=== PATIENT | female | born 1955 | race Caucasian/White ===

== ENCOUNTER → 2017-12-06 13:45 | Outpatient (CLI) | payer MEDICAID, SELFPAY ==
[2017-12-08 12:25] LABS: Cancer Antigen 125 13.1 U/mL (0.0-38.1)
== END ==
PROVIDERS: Family Provider Family Medicine; PCP Family Medicine; Visit Provider Obstetrics & Gynecology Gynecologic Oncology
DX: C54.1 Malignant neoplasm of endometrium (principal)
CPT/HCPCS: 36415; 86304

== ENCOUNTER 2018-04-25 11:27 | Emergency (ER) | payer MEDICAID, SELFPAY ==
[2018-04-25 11:28] VITALS: BP 160/90; PULSE 70; RESP 18; TEMP 36.8; O2SAT 98; BMI 34.4
--- NOTE | 2018-04-25 12:06 | CT_ITS ---
STUDY: CT ABDOMEN AND PELVIS WITHOUT CONTRAST REASON FOR EXAM: Female, 62 years old. Left flank pain with nausea and vomiting. History of endometrial carcinoma. RADIATION DOSAGE (If Supplied By Facility): CTDIvol = ( 22.78 ) mGy, DLP = ( 1189.25 ) mGycm TECHNIQUE: Transaxial images were obtained from the dome of the diaphragm to the symphysis pubis without oral contrast, and without intravenous contrast. Sagittal and coronal images were reconstructed. Individualized dose optimization techniques were used for this CT. COMPARISON: Comparison is made with prior study dated September 12, 2017. FINDINGS: The visualized lung bases are unremarkable. The visualized portions of the heart are within normal limits. Normal liver. Possible sludge and tiny gallstones along the dependent portion of the gallbladder. Normal spleen. Normal pancreas. Normal bilateral adrenal glands. There is evidence of bilateral hydronephrosis and hydroureter more prominent on the right side. 2 mm calculus seen in the distal portion right ureter proximal to the right ureterovesical junction. 2 punctate calcifications are seen in the lower pole calyces of the left kidney. Stable 3.4 cm x 2.5 cm cystic mass in the mid right retroperitoneal region abutting the right psoas muscle. There is a small hiatal hernia. Normal small intestine. There are multiple colonic diverticula consistent with diverticulosis. There is non-visualization of the appendix. There is scattered atherosclerotic calcification of the abdominal aorta, without a demonstrated aneurysm. Normal inferior vena cava. Normal retroperitoneum. Normal urinary bladder. There is absence of the uterus consistent with a prior hysterectomy. Normal abdominal wall. There are mild degenerative changes of the visualized lumbar spine. CT/Abdomen/Pelvis without Cont IMPRESSION: Bilateral hydronephrosis and hydroureter more prominent on the right side. 2 mm calculus seen in the distal portion the right ureter just proximal to the right ureterovesical junction. Tiny gallstones and/or sludge along the dependent portion the gallbladder lumen. Electronically Signed: Cesar Kat MD at 13:26 EDT Tel [phone], Service support ,
[2018-04-25] MEDS: 0.9% Normal Saline 1,000 ML 125 ML IV (12:16)
[2018-04-25] MEDS: Ondansetron 4 MG/2 ML Vial IV (12:17)
[2018-04-25] MEDS: Ketorolac 30 MG/ML Syringe 15 MG IV (12:17)
[2018-04-25] MEDS: HYDROmorphone 1 MG/ML Syringe IV ×2 (12:17→14:59)
[2018-04-25 12:28] LABS: Absolute Lymphocyte Count 0.73 X10^3/ul (0.83-4.51); Absolute Neutrophil Count 6.1 X10^3/uL (2.0-7.7); Basophil# 0.02 X10^3/uL; Basophil% 0.3 % (0-1); Eosinophil# 0.12 X10^3/uL; Eosinophils% 1.6 % (0-5); Hematocrit 36.1 % (37-47); Hemoglobin 11.5 g/dl (12.0-15.0); Lymphocyte # 0.73 X10^3/ul (4.0); Mean Corp Hgb Conc 31.9 g/gl (32-36); Mean Corpuscular Hgb 27.1 pg (27.0-32.0); Mean Corpuscular Volume 85.1 fL (81-99); Mean Platelet Vol. 8.8 fl (6.2-12.0); Monocyte# 0.33 X10^3/uL; Monocyte% 4.5 % (0-10); Neutrophil # 6.08 X10^3/uL (2.7-7.7); Neutrophil % 83.2 % (47-70); Platelet Count 215 K/mm3 (150-450); RBC Distribution Width CV 14.9 % (11.6-14.6); RBC Distribution Width SD 46.7 fl (35.1-43.9); Red Blood Count 4.24 M/mm3 (4.2-5.4); White Blood Count 7.3 K/mm3 (4.4-11.0)
[2018-04-25 12:30] LABS: POSITIVE COUNT NO; POSITIVE DIFFERENTIAL NO; POSITIVE MORPHOLOGY NO
[2018-04-25 12:31] LABS: Anion Gap 7 (5-15); BUN 24 mg/dL (7-18); BUN/Creat Ratio 21.4 RATIO (10-20); Calcium,Total 9.2 mg/dL (8.5-10.1); Chloride 114 mmol/L (98-107); Creatinine, Serum 1.12 mg/dL (0.55-1.02); EST Glomerular Filtration Rate 52 mL/min (>60); Est Glom Filt Rate - Afr Amer 63 mL/min (>60); Estimated Creatinine Clearance 51.86 ml/min; Glucose 103 mg/dL (74-106); Potassium 4.2 mmol/L (3.5-5.1); Sodium Level 141 mmol/L (136-145)
[2018-04-25 13:53] LABS: Color, Urine Yellow (Yellow); Glucose, Dipstick Normal (Normal); Ketone-Dipstick Negative (Negative); Leukocyte Esterase-Dipstick 100 /ul (Negative); Nitrite-Dipstick Negative (Negative); Occult Blood-Urine 250 /ul (Negative); Protein-Dipstick 30 mg/dl (Negative); Specific Gravity, Urine 1.015 (1.002-1.030); Urine Bilirubin Dipstick Negative (Negative); Urine Clarity Sl. Cloudy (Clear); Urine Urobilinogen Normal (Normal)
[2018-04-25 14:02] LABS: Bacteria 1+ /hpf (None Seen); Red Blood Cells-Urine 50-100 SEEN /hpf (0-5); Squamous Epithelial Cells - UA 0-5 SEEN /hpf (5-10); White Blood Cells 10-25 SEEN /hpf (0-5)
[2018-04-25 14:03] LABS: Mucous, Urine 1+ /hpf (<or=2+)
--- NOTE | 2018-04-25 14:43 | ED.VISSUMM ---
- ER Visit Summary Date of Service: 04/25/18 Chief Complaint: [Flank pain] History of Present Illness: The patient is a 62 F [presents the emergency department with left-sided flank pain that started around 7 AM. Patient rates her pain a 10 out of 10. Patient's had nausea and vomiting with this. Patient was seen by her primary care physician who dipped the urine and was told she had some blood in the urine was sent to the emergency department. Patient does have a history of kidney stones. Patient denies any fever. Patient denies urinary symptoms otherwise. ] Physical Examination: HEENT-PERRLA, EOMI. Cranial nerves II through XII grossly intact. TMs clear. Mucous membranes moist. No adenopathy. Cardiovascular-regular rate and rhythm without murmur or ectopy Lungs-clear to auscultation, chest wall stable without crepitus or subcu emphysema Abdomen-normoactive bowel sounds, soft. Patient has tenderness over left lower quadrant and left CVA tenderness on exam. There is no rebound, rigidity, or perineal signs. Extremities-intact ?4, normal range of motion, normal pulses, atraumatic] Test Results: [CBC with differential obtained showed a white blood cell count of 7.3, hemoglobin 11.5, hematocrit 36, platelet 215. Chemistry is unremarkable. Urinalysis was positive for 50-100 RBCs and 10-25 WBCs and +[address] flank obtained showed bilateral hydronephrosis and hydroureter more prominent on the right side there is a 2 mm calculus seen in the distal portion of the right ureter just proximal to the right UVJ patient also was noted to have possible 3.5 mm calculus at the left UVJ.] Emergency Department Course and Treatment: [Patient was medicated with Dilaudid, Toradol, and Zofran. Patient had good pain relief with that. Patient was treated with Bactrim. 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 Patient states that she will return if her symptoms worsen.] Disposition: [Discharged home in stable condition. Patient will be referred to was on-call for urology. Patient advised to return if worsening pain, fever, vomiting, or condition should worsen in any way.] Impression: [Urolithiasis UTI] This note was generated with [employer] dictation software. It may contain incorrect words, spelling, and punctuation that were not noted in review of the chart prior to signing ED Disposition - Plan for ED Patient: Chief Complaint: Flank Pain Referrals: Brook Woo MD [Primary Care Provider] -
--- NOTE | 2018-04-25 14:47 | ED.DCSUM_ITS ---
- ER Visit Summary Date of Service: 04/25/18 Chief Complaint: [Flank pain] History of Present Illness: The patient is a 62 F [presents the emergency department with left-sided flank pain that started around 7 AM. Patient rates her pain a 10 out of 10. Patient's had nausea and vomiting with this. Patient was seen by her primary care physician who dipped the urine and was told she had some blood in the urine was sent to the emergency department. Patient does have a history of kidney stones. Patient denies any fever. Patient denies urinary symptoms otherwise. ] Physical Examination: HEENT-PERRLA, EOMI. Cranial nerves II through XII grossly intact. TMs clear. Mucous membranes moist. No adenopathy. Cardiovascular-regular rate and rhythm without murmur or ectopy Lungs-clear to auscultation, chest wall stable without crepitus or subcu emphysema Abdomen-normoactive bowel sounds, soft. Patient has tenderness over left lower quadrant and left CVA tenderness on exam. There is no rebound, rigidity, or perineal signs. Extremities-intact ?4, normal range of motion, normal pulses, atraumatic] Test Results: [CBC with differential obtained showed a white blood cell count of 7.3, hemoglobin 11.5, hematocrit 36, platelet 215. Chemistry is unremarkable. Urinalysis was positive for 50-100 RBCs and 10-25 WBCs and +[address] flank obtained showed bilateral hydronephrosis and hydroureter more prominent on the right side there is a 2 mm calculus seen in the distal portion of the right ureter just proximal to the right UVJ patient also was noted to have possible 3.5 mm calculus at the left UVJ.] Emergency Department Course and Treatment: [Patient was medicated with Dilaudid , Toradol, and Zofran. Patient had good pain relief with that. Patient was treated with Bactrim. 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 Patient states that she will return if her symptoms worsen.] Disposition: [Discharged home in stable condition. Patient will be referred to was on-call for urology. Patient advised to return if worsening pain , fever, vomiting, or condition should worsen in any way.] Impression: [Urolithiasis UTI] This note was generated with [employer] dictation software. It may contain incorrect words, spelling, and punctuation that were not noted in review of the chart prior to signing ED Disposition - Plan for ED Patient: Chief Complaint: Flank Pain Referrals: Brook Woo MD [Primary Care Provider] -
--- NOTE | 2018-04-25 14:47 | ED.DEP ---
ED Disposition - Plan for ED Patient: Chief Complaint: Flank Pain Instructions: ED Stone Renal W Colic Prescriptions: Ondansetron [Zofran Odt] 4 mg PO Q8H PRN PRN #10 tab PRN Reason: Nausea Hydrocodone/Acetaminophen [[place] 5-325 Tablet] 1 - 2 ea PO 4X/DAY PRN PRN 5 Days #20 tab PRN Reason: Pain Smz/Tmp Ds [Bactrim Ds] 1 tab PO BID #10 tab Referrals: Brook Woo MD [Primary Care Provider] - Johan Gomez MD [STAFF PHYSICIAN] - 3-5 Days
--- NOTE | 2018-04-25 14:50 | DCINST.ED_ITS ---
ED Disposition - Plan for ED Patient: Chief Complaint: Flank Pain Instructions: ED Stone Renal W Colic Prescriptions: Ondansetron [Zofran Odt] 4 mg PO Q8H PRN PRN #10 tab PRN Reason: Nausea Hydrocodone/Acetaminophen [[place] 5-325 Tablet] 1 - 2 ea PO 4X/DAY PRN PRN 5 Days #20 tab PRN Reason: Pain Smz/Tmp Ds [Bactrim Ds] 1 tab PO BID #10 tab Referrals: Brook Woo MD [Primary Care Provider] - Johan Gomez MD [STAFF PHYSICIAN] - 3-5 Days
[2018-04-25] MEDS: Smz/Tmp Ds Tablet 1 TABLET PO (14:51)
[2018-04-25 14:59] VITALS: BP 136/60; PULSE 52; RESP 16; O2SAT 98
== END 2018-04-25 15:05 | disposition home or self-care (01) ==
LOC: ED 12:30
PROVIDERS: Emergency Provider Emergency Medicine; Family Provider Family Medicine; PCP Family Medicine
DX: N13.2 Hydronephrosis with renal and ureteral calculous obstruction (principal); N39.0 Urinary tract infection, site not specified; Z87.442 Personal history of urinary calculi
CPT/HCPCS: 74176; 80048; 81001; 85025; 87077; 87086; 87088; 99284; J7030; A4216; J2405

== ENCOUNTER → 2018-04-28 13:48 | Outpatient (CLI) | payer MEDICAID, SELFPAY ==
[2018-05-02 12:06] LABS: Cancer Antigen 125 19.4 U/mL (0.0-38.1)
== END ==
PROVIDERS: Family Provider Family Medicine; PCP Family Medicine; Visit Provider Obstetrics & Gynecology Gynecologic Oncology
DX: C54.1 Malignant neoplasm of endometrium (principal)
CPT/HCPCS: 36415; 86304

== ENCOUNTER 2018-06-06 20:49 | Emergency (ER) | payer MEDICAID, SELFPAY ==
[2018-06-06 20:50] VITALS: BP 159/84; PULSE 69; RESP 16; TEMP 37.2; O2SAT 97; BMI 36.2
[2018-06-06 21:11] LABS: Absolute Lymphocyte Count 0.87 X10^3/ul (0.83-4.51); Absolute Neutrophil Count 7.6 X10^3/uL (2.0-7.7); Basophil# 0.02 X10^3/uL; Basophil% 0.2 % (0-1); Eosinophil# 0.08 X10^3/uL; Eosinophils% 0.9 % (0-5); Hematocrit 35.8 % (37-47); Hemoglobin 11.7 g/dl (12.0-15.0); Lymphocyte # 0.87 X10^3/ul (4.0); Lymphocyte % 9.9 % (19-41); Mean Corp Hgb Conc 32.7 g/gl (32-36); Mean Corpuscular Hgb 28.1 pg (27.0-32.0); Mean Corpuscular Volume 86.1 fL (81-99); Monocyte% 3.4 % (0-10); Neutrophil # 7.55 X10^3/uL (2.7-7.7); Neutrophil % 85.5 % (47-70); POSITIVE COUNT NO; POSITIVE DIFFERENTIAL NO; POSITIVE MORPHOLOGY NO; Platelet Count 212 K/mm3 (150-450); RBC Distribution Width CV 14.5 % (11.6-14.6); RBC Distribution Width SD 44.6 fl (35.1-43.9); Red Blood Count 4.16 M/mm3 (4.2-5.4); White Blood Count 8.8 K/mm3 (4.4-11.0)
[2018-06-06 21:12] LABS: Bacteria 0 SEEN /hpf (None Seen); Mucous, Urine 0 SEEN /hpf (<or=2+)
[2018-06-06 21:16] LABS: Color, Urine Yellow (Yellow); Glucose, Dipstick Normal (Normal); Ketone-Dipstick Negative (Negative); Leukocyte Esterase-Dipstick 500 /ul (Negative); Nitrite-Dipstick Negative (Negative); Occult Blood-Urine 50 /ul (Negative); Protein-Dipstick 30 mg/dl (Negative); Urine Bilirubin Dipstick Negative (Negative); Urine Clarity Sl. Cloudy (Clear); Urine Urobilinogen Normal (Normal)
[2018-06-06 21:23] LABS: Red Blood Cells-Urine 0-5 SEEN /hpf (0-5); Squamous Epithelial Cells - UA 0-5 SEEN /hpf (5-10); White Blood Cells 25-50 SEEN /hpf (0-5)
--- NOTE | 2018-06-06 22:14 | CT_ITS ---
STUDY: CT ABDOMEN AND PELVIS WITHOUT CONTRAST REASON FOR EXAM: Female, 62 years old. RT FLANK PAIN SINCE 2AM AND VOMITING,ELEVATED BP HX:KIDNEY STONES,ENDOMETRIAL CANCER WITH MINDA/BSO RADIATION DOSAGE (If Supplied By Facility): CTDIvol = ( 20.51 ) mGy, DLP = ( 1086.17 ) mGycm TECHNIQUE: Transaxial images were obtained from the dome of the diaphragm to the symphysis pubis without oral contrast, and without intravenous contrast. Sagittal and coronal images were reconstructed. COMPARISON: Apr 25 2018 12:14pm FINDINGS: The visualized lung bases are unremarkable. The visualized portions of the heart are within normal limits. Normal liver. There are multiple gallstones. Normal spleen. Normal pancreas. Normal bilateral adrenal glands. Nonobstructive stone of the superior right kidney measuring 1 mm. Severe right hydronephroureter caused by a 4 mm distal ureteral stone. There are nonobstructive 1 mm stones in the inferior left kidney. Normal visualized stomach. Normal small intestine. There are multiple colonic diverticula consistent with diverticulosis. The appendix is visualized and appears normal. There are calcifications of the abdominal aorta and vascular structures. This is consistent for atherosclerotic disease. There is no abdominal aortic aneurysm. Normal inferior vena cava. Subcentimeter mesenteric lymph nodes. Normal urinary bladder. There is absence of the uterus consistent with a prior hysterectomy. Normal abdominal wall. There are degenerative changes of the osseous structures. CT/Abdomen/Pelvis without Cont IMPRESSION: Severe right hydronephroureter caused by a 4 mm distal ureteral stone. There are multiple diverticuli of the colon. There is diverticulosis but no radiographic signs for diverticulitis. There are bilateral renal calculi. Cholelithiasis. Other findings as above. Electronically Signed: Milind Hassan MD at 23:09 EDT , Service support ,
[2018-06-06] MEDS: Morphine 4 MG/ML Syringe IV (22:21)
[2018-06-06] MEDS: Ketorolac 30 MG/ML Syringe IV (22:21)
[2018-06-06] MEDS: 0.9% Normal Saline 1,000 ML 250 ML IV (22:21)
[2018-06-06] MEDS: Ondansetron 4 MG/2 ML Vial IV (22:21)
[2018-06-06 22:31] LABS: AST(SGOT) 13 U/L (15-37); Alanine Aminotransfer ALT/SGPT 24 U/L (13-56); Albumin, Serum 3.6 g/dL (3.2-5.0); Alkaline Phosphatase 189 U/L (45-117); Anion Gap 9 (5-15); BUN 24 mg/dL (7-18); BUN/Creat Ratio 17.4 RATIO (10-20); Calcium,Total 8.9 mg/dL (8.5-10.1); Chloride 109 mmol/L (98-107); Creatinine, Serum 1.38 mg/dL (0.55-1.02); EST Glomerular Filtration Rate 41 mL/min (>60); Est Glom Filt Rate - Afr Amer 50 mL/min (>60); Estimated Creatinine Clearance 40.58 ml/min; Globulin 3.7 g/dL (2.2-4.2); Glucose 116 mg/dL (74-106); Potassium 4.1 mmol/L (3.5-5.1); Protein, Total 7.3 g/dL (6.4-8.2); Sodium Level 141 mmol/L (136-145)
[2018-06-06 22:55] VITALS: BP 138/69; PULSE 57; RESP 16; O2SAT 95
--- NOTE | 2018-06-06 23:46 | ED.VISSUMM ---
- ER Visit Summary Date of Service: 06/06/18 Chief Complaint: Right flank pain History of Present Illness: The patient is a [address] Woo. She reports she has right flank pain that began abruptly 2:00 this morning. States that it is sharp and 10 out of 10 at worst. Pain is 9 out of 10 currently. Is worsened by nothing relieved by nothing. She has been nausea and vomited once. No blood or emesis. She denies any diarrhea. Her last problem was today. She has had no melena or hematochezia. She has had dysuria, but no frequency or hematuria. Physical Examination: Vitals: Stable. Afebrile. General: Well-nourished and well-developed. Head: Normocephalic atraumatic. Neck: Supple, no lymphadenopathy. No JVD. Nontender. Cardiovascular: Regular rate and rhythm. No murmurs. Respiratory: No respiratory distress. Clear to auscultation bilaterally. Abdominal: Soft, nontender, nondistended, normal bowel sounds. No guarding, rebound, or peritoneal signs. Back: Nontender. Extremities: Nontender, no edema. Skin: Normal color, no rash. Neurologic: Alert and oriented ?3. Cranial nerves II through XII are intact. Normal strength and sensation. Psych: Normal affect. Test Results: UA shows 25-50 white blood cells with no bacteria. Chem-7 is more for chloride 109, glucose 116, BUN 24, creatinine 1.38. Creatinine ranged from 0.761.29 and 2017. CBC is more for an H&H 11.7 35.8, 7 neutrophils [address] flank shows severe right hydronephroureter secondary to a 4 mm distal ureteral stone. Emergency Department Course and Treatment: Patient's urine was sent for culture. She is given a dose of Rocephin IV. She was given morphine, Zofran, and Toradol IV. She is resting comfortably. Treatment Plan: Patient will be discharged on M[place], Flomax, and Keflex. Instructed follow-up Dr. Gomez in 3-5 days she did not pass the stone. Return to the emergency department for any worsening symptoms. Disposition: To home in improved and stable condition. Impression: 1. Right ureterolithiasis. 2. Pyuria. This note was generated with [employer] dictation software. It may contain incorrect words, spelling, and punctuation that were not noted in review of the chart prior to signing ED Disposition - Plan for ED Patient: Disposition: Home or Assisted Living Chief Complaint: Flank Pain Instructions: ED Stone Renal W Colic Prescriptions: Hydrocodone/Acetaminophen [[place] 5-325 Tablet] 1 - 2 each PO 4X/DAY PRN PRN 5 Days #20 tablet PRN Reason: Pain Tamsulosin HCl [Flomax] 0.4 mg PO DAILY #7 capsule Cephalexin [Keflex] 500 mg PO TID #21 capsule Referrals: Johan Gomez MD [STAFF PHYSICIAN] - 3-5 Days if not improving
[2018-06-07] MEDS: HYDROcodone Bitartrate/Apap 5/325 Tablet PO (00:16)
[2018-06-07 00:19] VITALS: PULSE 58; RESP 16
== END 2018-06-07 00:20 | disposition home or self-care (01) ==
LOC: ED 22:17
PROVIDERS: Emergency Provider Emergency Medicine; Family Provider Family Medicine; PCP Family Medicine
DX: N20.1 Calculus of ureter (principal); N39.0 Urinary tract infection, site not specified; Z87.442 Personal history of urinary calculi
CPT/HCPCS: 74176; 80053; 81001; 85025; 87086; 87088; 99284; J7030; A4216; J2405

== ENCOUNTER → 2018-08-31 10:22 | Outpatient (CLI) | payer MEDICAID, SELFPAY ==
--- NOTE | 2018-08-31 10:51 | RAD_ITS ---
STUDY: X-RAY CHEST REASON FOR EXAM: Female, 63 years old. Endometrial cancer. TECHNIQUE: Frontal and lateral views of the chest. COMPARISON: 05/02/2017. FINDINGS: The lungs are clear and expanded. There is no demonstrated pleural abnormality. Normal size heart. Normal mediastinum and elba. Normal visualized pulmonary arteries. Normal visualized aortic arch and descending thoracic aorta. Normal visualized thoracic spine. Normal visualized ribs, clavicles, and shoulders. There is no demonstrated abnormality of the visualized soft tissue structures of the upper abdomen. RAD/Chest PA and Lateral IMPRESSION: Normal x-ray examination of the chest. Electronically Signed: Kevin lCark MD at 17:14 EDT , Service support ,
[2018-09-01 15:37] LABS: Cancer Antigen 125 36.8 U/mL (0.0-38.1)
== END ==
PROVIDERS: Family Provider Family Medicine; PCP Family Medicine; Referring Provider Obstetrics & Gynecology Gynecologic Oncology
DX: C54.1 Malignant neoplasm of endometrium (principal)
CPT/HCPCS: 36415; 71046; 86304

== ENCOUNTER → 2018-11-01 15:27 | Outpatient (CLI) | payer MEDICAID, SELFPAY ==
--- NOTE | 2018-11-01 15:28 | BI_ITS ---
MAMMOGRAPHY - BILATERAL SCREENING 3-D JAMES SYNTHESIS REASON FOR EXAM: Female, 63 years old. Bilateral Screening 3-D tomosynthesis PERTINENT HISTORY: History of cervical cancer.. TECHNIQUE: 2-D mammograms and 3-D James synthesis of the breast (s) were performed. CAD was performed. COMPARISON: March 02, 2016, March 06, 2013 FINDINGS: The breast composition is almost entirely fat. There are stable lymph nodes. Scattered benign calcifications are seen. No dense spiculated masses or suspicious microcalcifications are identified. No architectural distortion is identified. There is no skin thickening or retraction. There has been no significant change since the prior study. BI/SCREENING MAMM (CAD), BILAT IMPRESSION: No mammographic signs of malignancy. Routine yearly mammograms recommended. ASSESSMENT CATEGORY: BIRADS Category 2: Benign. A letter regarding these results will be sent to the patient by the facility within 30 days. FOLLOW UP RECOMMENDATION: Yearly follow up mammogram recommended. (A) Approximately 10% of breast cancers are not detected by mammography. A normal mammogram should not delay biopsy of a clinically suspicious abnormality. Electronically Signed: Yuval Gomez MD at 10:36 EST , Service support ,
== END ==
PROVIDERS: Family Provider Family Medicine; PCP Family Medicine; Visit Provider Family Medicine
DX: Z12.31 Encounter for screening mammogram for malignant neoplasm of breast (principal)
CPT/HCPCS: 77063; 77067

== ENCOUNTER 2018-12-12 18:47 | Emergency (ER) | payer MEDICAID, SELFPAY ==
[2018-12-12 18:48] VITALS: BP 155/90; PULSE 87; RESP 18; TEMP 36.1; O2SAT 97; BMI 38.8
--- NOTE | 2018-12-12 20:11 | CT_ITS ---
HISTORY: Rt flankpain. Hx of kidney stones and endometrial cancer with [place]/BSO TECHNIQUE: Helically acquired images were obtained of the abdomen and pelvis without oral or IV contrast as per renal stone protocol. A radiation dose optimization technique was used for this scan. IV Contrast dosage and agent: None. Oral contrast: None. COMPARISON: 06/06/18 CT abdomen and pelvis. FINDINGS: # of images incl. paperwork: 531 LOWER CHEST: Lung bases are clear. No cardiomegaly or pericardial effusion observed. LIVER: Homogeneous. No focal mass. GALLBLADDER AND BILIARY TREE: Several small gallstones layer in the gallbladder. No evidence of acute cholecystitis or biliary obstruction. No intra- or extrahepatic biliary ductal dilation. KIDNEYS AND URETERS: 9 mm in length, 3 mm in diameter stone in the distal right ureter, about 2 cm from the urinary bladder, with moderate to severe more proximal hydronephrosis and hydroureter. No residual right-sided stones are evident. A couple of punctate nonobstructing stones are seen in the lower pole of the left kidney. No left hydronephrosis or left ureteral stones. ADRENAL GLANDS: Non-enlarged. SPLEEN: Normal size without focal cystic or solid mass. PANCREAS: No focal cystic or solid mass. BOWEL: Sigmoid colon diverticulosis. No diverticulitis. No obstruction or inflammation of the bowel. Normal appendix. LYMPH NODES: No enlarged mesenteric or retroperitoneal lymph nodes. PERITONEUM: No ascites or free air. No other fluid collection. VESSELS: Aorta is non-dilated. URINARY BLADDER: Incompletely distended, otherwise grossly unremarkable. REPRODUCTIVE ORGANS: Status post hysterectomy. ABDOMINAL WALL: No discrete abdominal or pelvic wall hernia observed. BONES: No acute findings. Facet degeneration lower lumbar spine. Partial lumbarization S1. CT/Abdomen/Pelvis without Cont IMPRESSION: 9 x 3 mm distal right ureteral stone with moderate to severe more proximal hydronephrosis and hydroureter. A similar, but smaller, right ureteral stone was seen on the prior study. Punctate nonobstructing left renal stones. Cholelithiasis. Individualized dose optimization techniques were used for this CT. at 2122 Reported and signed by: Juan Clark MD Electronically Signed: Juan Clark, at 21:21 EST Tel , Service support ,
[2018-12-12] MEDS: 0.9% Normal Saline 1,000 ML 150 ML IV (20:27)
[2018-12-12 20:41] LABS: Absolute Lymphocyte Count 0.48 X10^3/ul (0.83-4.51); Absolute Neutrophil Count 6.9 X10^3/uL (2.0-7.7); Basophil# 0.02 X10^3/uL; Basophil% 0.2 % (0-1); Differential Indicated SCAN CRITERIA MET; Eosinophil# 0.14 X10^3/uL; Eosinophils% 1.7 % (0-5); Hematocrit 37.9 % (37-47); Hemoglobin 12.2 g/dl (12.0-15.0); Lymphocyte # 0.48 X10^3/ul (4.0); Lymphocyte % 5.8 % (19-41); Mean Corp Hgb Conc 32.2 g/gl (32-36); Mean Corpuscular Hgb 27.7 pg (27.0-32.0); Mean Corpuscular Volume 85.9 fL (81-99); Mean Platelet Vol. 8.8 fl (6.2-12.0); Monocyte# 0.64 X10^3/uL; Monocyte% 7.8 % (0-10); Neutrophil # 6.92 X10^3/uL (2.7-7.7); Neutrophil % 84.3 % (47-70); POSITIVE COUNT NO; POSITIVE DIFFERENTIAL YES; POSITIVE MORPHOLOGY NO; Platelet Count 250 K/mm3 (150-450); RBC Distribution Width CV 14.1 % (11.6-14.6); Red Blood Count 4.41 M/mm3 (4.2-5.4); White Blood Count 8.2 K/mm3 (4.4-11.0)
[2018-12-12] MEDS: Morphine 4 MG/ML Syringe IV (20:44)
[2018-12-12] MEDS: Ondansetron 4 MG/2 ML Vial IV (20:44)
[2018-12-12] MEDS: Ketorolac 15 MG/ML Vial IV (20:44)
[2018-12-12 20:52] LABS: Anion Gap 8 (5-15); BUN 23 mg/dL (7-18); BUN/Creat Ratio 20.4 RATIO (10-20); Calcium,Total 9.1 mg/dL (8.5-10.1); Chloride 108 mmol/L (98-107); Creatinine, Serum 1.13 mg/dL (0.55-1.02); EST Glomerular Filtration Rate 51 mL/min (>60); Est Glom Filt Rate - Afr Amer 62 mL/min (>60); Estimated Creatinine Clearance 48.91 ml/min; Glucose 116 mg/dL (74-106); Potassium 4.2 mmol/L (3.5-5.1); Sodium Level 140 mmol/L (136-145)
[2018-12-12 21:00] LABS: Platelet Estimate ADEQUATE (ADEQ)
[2018-12-12 21:01] LABS: Anisocytosis RARE
[2018-12-12 21:21] LABS: Mucous, Urine 0 SEEN /hpf (<or=2+)
[2018-12-12 21:47] LABS: Color, Urine Yellow (Yellow); Glucose, Dipstick Normal (Normal); Ketone-Dipstick Negative (Negative); Leukocyte Esterase-Dipstick 500 /ul (Negative); Nitrite-Dipstick Negative (Negative); Occult Blood-Urine 50 /ul (Negative); Protein-Dipstick 30 mg/dl (Negative); Urine Bilirubin Dipstick Negative (Negative); Urine Clarity Clear (Clear); Urine Urobilinogen Normal (Normal)
[2018-12-12 21:58] LABS: Red Blood Cells-Urine 0-5 SEEN /hpf (0-5); Squamous Epithelial Cells - UA 0-5 SEEN /hpf (5-10); White Blood Cells 10-25 SEEN /hpf (0-5)
[2018-12-12 21:59] LABS: Bacteria RARE /hpf (None Seen)
[2018-12-12 22:14] VITALS: BP 146/58; PULSE 67; RESP 16; O2SAT 95
--- NOTE | 2018-12-12 22:43 | ED.DCSUM_ITS ---
- ER Visit Summary Date of Service: 12/12/18 Chief Complaint: Right flank pain History of Present Illness: The patient is a 63 F with right flank pain that started this afternoon rather suddenly. Patient reports some mild nausea but no vomiting. Patient does have history of prior kidney stones that feels similar. She states she has required laser treatment in the past for her stones. Physical Examination: Vital signs gross unremarkable. Head neck examination normal. Heart is regular rate and rhythm. Lungs sounds are clear. Abdomen is soft and nontender. Patient does have mild right CVA tenderness. Test Results: CBC is normal. Chemistry studies significant only for creatinine 1.13. Urinalysis shows 10-25 white cells with rare bacteria. CT flank shows 9 x 3 mm distal right ureter stone with moderate to severe hydronephrosis and hydroureter. Emergency Department Course and Treatment: Patient was given morphine, Toradol, Zofran, and IV fluids. On repeat evaluation pain is resolved. Test results were discussed with her. She will be treated with Bactrim and a urine culture has been sent. She is given anti-emetics and analgesics. She will call Dr. Gomez for follow-up as she has been seen by this group in the past. Treatment Plan: [] Disposition: Discharge Impression: Right ureterolithiasis This note was generated with [employer] dictation software. It may contain incorrect words, spelling, and punctuation that were not noted in review of the chart prior to signing ED Disposition - Plan for ED Patient: Disposition: Home or Assisted Living Instructions: ED Stone Renal W Colic Prescriptions: Oxycodone HCl/Acetaminophen [Percocet 5/325] 1 tablet PO Q6H PRN PRN 5 Days #20 tablet PRN Reason: Pain Ondansetron [Zofran Odt] 4 mg PO Q8H PRN PRN #10 tablet PRN Reason: Nausea Ibuprofen 600 mg PO TID PRN PRN #14 tablet PRN Reason: Pain Smz/Tmp Ds [Bactrim Ds] 1 tablet PO BID #6 tablet Referrals: Johan Gomez MD [STAFF PHYSICIAN] - 3-5 Days
[2018-12-12] MEDS: Smz/Tmp Ds Tablet 1 TABLET PO (22:55)
[2018-12-12] MEDS: Ondansetron ODT 4 MG Tablet PO (22:56)
[2018-12-12] MEDS: oxyCODONE 5 MG Tablet PO (22:56)
[2018-12-12 22:58] VITALS: BP 140/80; PULSE 79; RESP 16; O2SAT 98
== END 2018-12-12 22:59 | disposition home or self-care (01) ==
PROVIDERS: Emergency Provider Emergency Medicine; Family Provider Family Medicine; PCP Family Medicine
DX: N13.2 Hydronephrosis with renal and ureteral calculous obstruction (principal); K21.9 Gastro-esophageal reflux disease without esophagitis; Z87.891 Personal history of nicotine dependence; Z85.89 Personal history of malignant neoplasm of other organs and systems; Z87.442 Personal history of urinary calculi
CPT/HCPCS: 74176; 80048; 81001; 85025; 87086; 87088; 96361; 96374; 96375; 99285; J7030; J2405

== ENCOUNTER → 2018-12-29 10:31 | Outpatient (CLI) | payer MEDICAID, SELFPAY ==
[2018-12-12 18:48] VITALS: BMI 38.8
== END ==
PROVIDERS: Family Provider Family Medicine; PCP Family Medicine; Referring Provider Family Medicine; Visit Provider Obstetrics & Gynecology Gynecologic Oncology
DX: C54.1 Malignant neoplasm of endometrium (principal)
CPT/HCPCS: 36415; 86304

== ENCOUNTER → 2019-04-18 16:27 | Outpatient (CLI) | payer MEDICAID, SELFPAY | PROVIDERS: Family Provider Family Medicine; PCP Family Medicine; Referring Provider Otolaryngology Otolaryngology/Facial Plastic Surgery; Visit Provider Otolaryngology Otolaryngology/Facial Plastic Surgery | DX: J02.9 Acute pharyngitis, unspecified (principal) | CPT/HCPCS: 87070 ==

== ENCOUNTER → 2019-05-17 14:05 | Outpatient (CLI) | payer MEDICAID, SELFPAY ==
[2019-05-20 14:01] LABS: Cancer Antigen 125 22.3 U/mL (0.0-38.1)
== END ==
PROVIDERS: Family Provider Family Medicine; PCP Family Medicine; Visit Provider Obstetrics & Gynecology Gynecologic Oncology
DX: C54.1 Malignant neoplasm of endometrium (principal)
CPT/HCPCS: 36415; 86304

== ENCOUNTER → 2019-11-21 09:42 | Outpatient (CLI) | payer MEDICARE, SELFPAY ==
[2019-11-22 13:39] LABS: Cancer Antigen 125 22.2 U/mL (0.0-38.1)
== END ==
PROVIDERS: Family Provider Family Medicine; PCP Family Medicine; Referring Provider Family Medicine; Visit Provider Obstetrics & Gynecology Gynecologic Oncology
DX: C54.1 Malignant neoplasm of endometrium (principal)
CPT/HCPCS: 36415; 86304

== ENCOUNTER 2019-12-06 04:35 | Emergency (ER) | payer MEDICARE, SELFPAY ==
[2019-12-06 04:35] VITALS: BP 176/80; PULSE 81; RESP 16; TEMP 36.4; O2SAT 98; BMI 37.9
--- NOTE | 2019-12-06 04:49 | CT_ITS ---
STUDY: CT ABDOMEN AND PELVIS WITHOUT CONTRAST REASON FOR EXAM: Female, 64 years old. RT FLANK PAIN-hx of kidney stones with prior lithotripsy. Hx of endometrial cancer with MINDA/BSO RADIATION DOSAGE (If Supplied By Facility): CTDIvol = ( 22.68 ) mGy, DLP = ( 1190.08 ) mGycm TECHNIQUE: Transaxial images were obtained from the dome of the diaphragm to the symphysis pubis without oral contrast, and without intravenous contrast. Sagittal and coronal images were reconstructed. Individualized dose optimization techniques were used for this CT. COMPARISON: None. FINDINGS: This is a limited non-IV and nonoral contrast study. There are multiple new pulmonary nodules with the bilateral lower lobes. Largest pulmonary nodule within left lower lobe measures 5 mm largest pulmonary nodule right lower lobe measures 6 mm. The visualized portions of the heart are within normal limits. There is a small hiatal hernia. Normal liver. The gallbladder is contracted. There are multiple gallstones.. Normal spleen. Normal pancreas. Normal bilateral adrenal glands. There is stable moderate to severe right hydronephrosis and significant hydroureter. There is a 9 x 4 mm calculus within the distal right ureter approximately 2 cm proximal to the ureterovesical junction. This is the same ureteral calculus on the prior study with only minimal distal migration of the calculus when compared to the prior study.. Normal left kidney. Normal visualized stomach. Normal small intestine. There is scattered colonic diverticulosis with no evidence for diverticulitis. The appendix is visualized and appears normal. Normal abdominal aorta. Normal inferior vena cava. Normal retroperitoneum. There are vascular calcifications within the pelvis. Normal urinary bladder. There is small anterior abdominal periumbilical fatty hernia Normal osseous structures. CT/Abdomen/Pelvis without Cont IMPRESSION: Limited non-IV nonoral contrast study stable moderate to severe right hydronephrosis and significant hydroureter. There is an obstructing 9 x 4 mm calculus within the distal right ureter approximately 2 cm proximal to the ureterovesical junction. This is the same ureteral calculus on the prior study with only minimal distal migration of the calculus when compared to the prior study Multiple new pulmonary nodules highly suspicious for metastatic disease, CT chest follow-up recommended Small hiatal hernia Cholelithiasis Colonic diverticulosis and diverticulitis Small anterior abdominal wall periumbilical fatty hernia Electronically Signed: Jose Shannon, at 6:00 EST Tel , Service support ,
--- NOTE | 2019-12-06 04:50 | ED.VIS.GI ---
History of Present Illness Chief Complaint: Flank Pain Informant: Patient - Abdominal Pain/Flank Pain Onset: Hours - 1-2 Context: Sudden Onset Timing: Continuous, Waxes and wanes Quality: Aching Location: Right Flank Current Severity: Severe Maximum Severity: Severe Worsened by: Nothing Relieved by: Nothing - Nausea/Vomiting/Emesis GI Symptom: Nausea. Negative for: Vomiting Severity: Mild - Diarrhea/Melena/Hematochezia GI Symptom: Negative for: Diarrhea, Melena, Hematochezia Associated Symptoms: Negative for: Dysuria, Frequency, Hematuria, Urgency Narrative: Sudden onset an hour or 2 prior to arrival, woke her up from sleep, feels like kidney stone pain. In the right low back and radiating around her right side to her right mid abdomen. Has passed a couple of stones in the past on the other side, has had to have a stone surgically assisted in passing. Prior similar symptoms: Yes - prior kidney stones - Past Medical History (1) Kidney stones Status: Chronic (2) Endometrial adenocarcinoma Status: Resolved Past Medical History - Allergies and Home Meds Allergies/Adverse Reactions: Allergies Penicillins Adverse Reaction (Unknown, Verified 12/12/18 18:50) Unknown Mother was very allergic to PCN so Jennifer has never taken the medication. Primary Care Physician: Brook Woo MD [Primary Care Provider] - Mary Stoner MD [STAFF PHYSICIAN] - 1 Week if not improving Surgical History: hysterectomy, - - BTL. kidney stone. Smoking Status: Former smoker Review of Systems General: Denies: Chills, Fever, Sweats Eyes: Denies: Visual changes - bilaterally, Diplopia ENT: Denies: Rhinorrhea, Sore throat Cardiovascular: Denies: Chest pain, Palpitations Respiratory: Denies: Dyspnea, Cough, Dyspnea on exertion Gastrointestinal: Reports: Abdominal pain, Nausea. Denies: Vomiting, Diarrhea, Melena, Hematochezia Genitourinary: Denies: Dysuria, Hematuria, Frequency Musculoskeletal: Reports: Back pain. Denies: Swelling, Extremity Pain Skin: Denies: Rash, Wounds Neurological: Denies: Headache, Weakness, Numbness Physical Exam Vital Signs/Narrative: Vital Signs Temp Pulse Resp BP Pulse Ox 12/06/19 04:35 97.5 F L 81 16 176/80 H 98 Inital Vital Signs reviewed: Yes General: Well nourished, Well developed, No Acute Distress Head: Normocephalic, Atraumatic Eyes: Perrl, EOMI ENT: Moist mucous membranes, No rhinorrhea Neck: Supple, Nontender Cardiovascular: Regular rate, Regular rhythm, No murmurs Respiratory: No distress, CTA bilaterally, Chest nontender Abdomen: Soft, Nontender, Nondistended, Normal bowel sounds Back: Nontender, Normal Inspection. Negative for: CVA tenderness Extremities: Nontender, No edema Skin: Normal color, No rash Neurological: Alert, Oriented x3, Cranial nerves II-XII grossly intact, Normal Strength, Normal Sensation, Normal Gait Psychological: Normal affect, Normal Mood Diagnostic/Tx/Re-eval Laboratory Tests 12/06/19 Range/Units 05:35 Urine Color Yellow (Yellow) Urine Clarity Clear (Clear) Urine pH 5.0 (5.0 - 8.0) Ur Specific [place] 1.025 (1.002-1.030) Urine Protein 15 H (Negative) mg/dl Urine Glucose (UA) Normal (Normal) mg/dl Urine Ketones Negative (Negative) mg/dl Urine Occult Blood 10 H (Negative) /ul Urine Nitrite Negative (Negative) Urine Bilirubin Negative (Negative) mg/dL Urine Urobilinogen Normal (Normal) mg/dl Ur Leukocyte Esterase Negative (Negative) /ul Urine RBC 0-5 SEEN (0-5) /hpf Urine WBC 0-5 SEEN (0-5) /hpf Ur Squamous Epith Cells 0-5 SEEN (5-10) /hpf Urine Bacteria 0 SEEN (None Seen) /hpf Urine Mucus 0 SEEN (<or=2+) /hpf Clinical Impression(s) from Imaging Studies Abdomen/Pelvis CT 12/06/19 04:49 IMPRESSION: Limited non-IV nonoral contrast study stable moderate to severe right hydronephrosis and significant hydroureter. There is an obstructing 9 x 4 mm calculus within the distal right ureter approximately 2 cm proximal to the ureterovesical junction. This is the same ureteral calculus on the prior study with only minimal distal migration of the calculus when compared to the prior study Multiple new pulmonary nodules highly suspicious for metastatic disease, CT chest follow-up recommended Small hiatal hernia Cholelithiasis Colonic diverticulosis and diverticulitis Small anterior abdominal wall periumbilical fatty hernia Electronically Signed: Jose Shannon at 6:00 EST Tel , Service support , - Medical Decision Making With IV fluids, Toradol, Zofran, patient symptoms are very well controlled and she feels better. Urine shows no signs of infection. CT shows a 9x4 mm distal ureteral stone on the right with hydronephrosis and hydroureter. However, this is similar to a prior CT scan 12 months ago, as the stone was in her ureter then but is now obstructing. If this had not been seen on her prior CT scan, simple expectant management would be indicated, but I would want her to follow-up with urology regardless of feeling better given this result. Additionally, we discussed the above finding of new multiple pulmonary nodules compared with her prior scan that are suspicious for possible malignancy. She had a history of adenocarcinoma of the uterus, and she is followed by Dr. Colten Berrios, with gynecologic oncology at [facility], she has had evaluations every 3 months and I have done well. She has an appointment almost 6 months away, in May. I discussed with radiology and they pushed the CT images to the [facility] PACS seismic prospecting observer helper so that he may access those images if he wishes. I advised the patient to follow-up with him soon as possible and not to wait until May. In further discussion, she has had a chronic cough and she cannot remember how long it has been there but she also states she has chronic sinus problems and it is hard to tell sometimes if her cough is related to that or not. She may need more imaging as an outpatient. She may get some of this done by following up with her primary care doctor as well so I advised that. She understands of these pulmonary nodules may be malignancy and that even if we did a CT scan tonight, further testing not available here in the emergency department at this time will be necessary. We discussed reasons to return, including fevers, urinary retention, intractable symptoms. ED Disposition - Plan for ED Patient: Disposition: Home or Assisted Living Diagnosis: Urolithiasis, Ureteral colic, Pulmonary nodules/lesions, multiple Instructions: KIDNEY STONE w/ Colic, PULMONARY NODULE, Solitary Prescriptions: Oxycodone HCl/Acetaminophen [Percocet 5/325] 1 tab PO Q6H PRN PRN 3 Days #12 tab PRN Reason: Pain Transmission Status: Pending to [facility] Ondansetron [Zofran Odt] 4 - 8 mg PO Q8H PRN PRN #12 tab PRN Reason: Nausea Transmission Status[facility] Referrals: Brook oWo MD [Primary Care Provider] - As soon as possible Mary Stoner MD [STAFF PHYSICIAN] - 1-2 Weeks (or sooner, if able. or Dr. Gomez -- whomever is available, since you saw Dr. Persaud once in the past) Colten Berrios MD [STAFF PHYSICIAN] - (Call as soon as possible, to discuss if he wants to order more testing or further evaluation given the new finding of multiple bilateral pulmonary nodules; CT abdomen/pelvis showing several of these nodules was pushed to the [facility] PACS seismic prospecting observer helper)
[2019-12-06] MEDS: Ondansetron 4 MG/2 ML Vial IV (04:55)
[2019-12-06] MEDS: Ketorolac 30 MG/ML Syringe 15 MG IV (04:55)
[2019-12-06] MEDS: 0.9% Normal Saline 1,000 ML 250 ML IV (04:55)
[2019-12-06 05:38] LABS: Bacteria 0 SEEN /hpf (None Seen); Mucous, Urine 0 SEEN /hpf (<or=2+)
[2019-12-06 05:42] LABS: Color, Urine Yellow (Yellow); Glucose, Dipstick Normal (Normal); Ketone-Dipstick Negative (Negative); Leukocyte Esterase-Dipstick Negative /ul (Negative); Nitrite-Dipstick Negative (Negative); Occult Blood-Urine 10 /ul (Negative); Protein-Dipstick 15 mg/dl (Negative); Specific Gravity, Urine 1.025 (1.002-1.030); Urine Bilirubin Dipstick Negative (Negative); Urine Clarity Clear (Clear); Urine Urobilinogen Normal (Normal)
[2019-12-06 05:51] LABS: Red Blood Cells-Urine 0-5 SEEN /hpf (0-5); Squamous Epithelial Cells - UA 0-5 SEEN /hpf (5-10); White Blood Cells 0-5 SEEN /hpf (0-5)
[2019-12-06 06:38] VITALS: BP 156/62; PULSE 69; RESP 16; O2SAT 97
== END 2019-12-06 06:40 | disposition home or self-care (01) ==
PROVIDERS: Emergency Provider Emergency Medicine; PCP Family Medicine
DX: N13.2 Hydronephrosis with renal and ureteral calculous obstruction (principal); R91.8 Other nonspecific abnormal finding of lung field; Z87.442 Personal history of urinary calculi; Z87.891 Personal history of nicotine dependence
CPT/HCPCS: 74176; 81001; 96361; 96374; 96375; 99282; J7030; J2405

== ENCOUNTER → 2019-12-25 | Outpatient (CLI) | payer MEDICARE, SELFPAY ==
[2019-12-06 04:35] VITALS: BMI 37.9
--- NOTE | 2019-12-25 16:45 | CT_ITS ---
STUDY: CT CHEST WITH CONTRAST REASON FOR EXAM: Female, 64 years old. Abnormal abdominal CT, history of endometrial cancer RADIATION DOSAGE (If Supplied By Facility): CTDIvol = ( 14.34 ) mGy, DLP = ( 697.09 ) mGycm TECHNIQUE: Transaxial imaging was performed following intravenous administration of IV 100mL Isovue-300. Individualized dose optimization techniques were used for this CT. COMPARISON: 06 December 2019 FINDINGS: There are multiple randomly distributed pulmonary nodules measuring from 3 to 18 mm in size. Two largest ones are located in the left lower lung measuring 18 mm and right lower lobe measuring 16 mm. Airways and pleural surfaces are intact. Mediastinal contents are normal. Cardiac chambers are normal in size and shape. The liver is fatty infiltrated. Osseous structures are intact. CT/Chest WITH Contrast IMPRESSION: 1. Multiple pulmonary metastases. Electronically Signed: Elmer Hoyt, at 18:43 EST Tel , Service support ,
[2019-12-25 17:10] LABS: CREATININE FINGERSTICK 1.2 mg/dL (0.55-1.02)
== END | disposition home or self-care (01) ==
LOC: CT 16:40
PROVIDERS: PCP Family Medicine; Referring Provider Family Medicine; Visit Provider Family Medicine
DX: R93.5 Abnormal findings on diagnostic imaging of other abdominal regions, including retroperitoneum (principal)
CPT/HCPCS: 71260; Q9967

== ENCOUNTER → 2020-01-31 07:43 | Outpatient (CLI) | payer MEDICARE, SELFPAY ==
[2020-01-24 14:56] VITALS: BMI 35.5
[2020-01-31] VITALS (11 sets, daily range): BP systolic 105–157; BP diastolic 48–96; PULSE 61–79; RESP 12–19; TEMP 36.6; O2SAT 95–98; BMI 35.5
--- NOTE | 2020-01-31 | ASPIGT_PTH ---
PATIENT: JAMES HIGGINS LOC: [place] U#:[id number] AGE/SX: 70/F ROOM: RE01/31/[address]: Dr. Reilly Ledbetter MD : 1955 BED: DIS: SPEC #: [id number] RECD: 01/31/20 10:13 STATUS: RICCARDO NICKERSONCaprice #: [id number] SUNITHA: 01/31/20 00:[address]: Reilly Ledbetter DEPT: SURGICAL PATHOLOGY RECD BY: Mateo Henry ENTERED: 01/31/20 10:14 SP TYPE: ASP RAD OTHR DR: Dr. Brook Woo MD Tissues: Lung, NOS Procedures: FNA Specimen Adequacy Special Stain Group II Surgery Specimen Level IV Imprint (control) HEADER OPERATION: CT-guided left lung biopsy PRE-OP DIAGNOSIS: Left lung nodule TISSUE SUBMITTED: Left lung nodule [address]-guided fine needle aspiration, left lung nodule (smears and cell block): Positive for malignant cells consistent with metastatic carcinoma. See comment. AM:hadley 02/06/20 COMMENT The specimen is evaluated at the time of biopsy by Dr. Chiu. Immediate Evaluation = Positive for malignant cells, non-small cell carcinoma. Immunohistochemistry ([id number]) supports the above diagnosis and is consistent with an endometrial primary. Case has been reviewed in consultation with Dr. Rosario who concurs with the above diagnosis. IDC:SJ MICROSCOPIC DESCRIPTION Slides are reviewed. GROSS DESCRIPTION Received in fixative is one container labeled with the patient's name and designated left lung nodule. The specimen consists of minute fragments of long material aggregating to 0.2 x 0.1 x <0.1 cm. The specimen is totally submitted in one block. / AM:hadley 01/31/20 TC:0 CPT: 94475, 81591
--- NOTE | 2020-01-31 | IMM_PTH ---
PATIENT: JAMES HIGGINS LOC: [place] U#:[id number] AGE/SX: 70/F ROOM: RE01/31/[address]: Dr. Reilly Ledbetter MD : 1955 BED: DIS: SPEC #: [id number] RECD: 02/01/20 11:52 STATUS: RICCARDO REQ #: [id number] SUNITHA: 01/31/20 00:[address]: Reilly Ledbetter DEPT: IMMUNOHISTOCHEMISTRY RECD BY: Carol Dean ENTERED: 02/01/20 11:53 SP TYPE: IMMUNO OTHR DR: Dr. Brook Woo MD Tissues: Lung, NOS Procedures: MSH2 (add) MLH-1 (add) MSH6 (add) Anti-PMS2 (add) NAPSIN A (add) CK20 (add) CK5-6 (add) CK7 (add) ARENAS-2 (add) YASH (add) ER (add) HER2 KELLY (add) P53 (add) CT (add) TTF1 (add) Vimentin (add) Pankeratin (initial) P40 (add) PHYSICIAN & INSTITUTION [address] [address] SPECIMEN INFORMATION: Tissue Source: Left lung nodule Clinical Info: Left lung nodule Specimen Number: [id number] CPT code: 36551, 15081 x17 METHODOLOGY: Deparaffinized sections of prefer/formalin-fixed tissue or PAP/DQ stained slides are incubated with monoclonal/polyclonal antibodies/oligonucleotide probes. Localization is made via biotin free immunoperoxidase method. Appropriate controls are performed and reacted as expected. Results on target cell population are indicated in the following table: RESULTS: ANTIBODY / CLONE RESULT AE1-3 (AE1/AE3/PCK26) positive CK7 (OV-TL12/30) positive, focal CK20 (KS20.8) negative ARENAS-2 (SP21) positive Vimentin (V9) positive, strong TTF-1 (8G7G3/1) negative Napsin A (Rabbit Polyclonal) negative CK5-6 (D5 & 1684) negative P40 (BC28) negative YASH (E29) negative P53 (DO-7) negative ER (6F11) negative CT (1E2) positive, rare, dim These tests were developed and their performance characteristics determined by [facility]. They may not have been cleared or approved by the U.S. Food and Drug Administration. The FDA has determined that such clearance or approval is not necessary. The above immunohistochemical/dualISH markers are ordered and reviewed by the Pathologist. INTERPRETATION: Left lung nodule, CT-guided biopsy: Metastatic non-small cell carcinoma consistent with metastatic endometrial primary. AM:hadley 02/05/20 ADDENDUM ADDENDUM ADDENDUM ADDENDUM ADDENDUM ADDENDUM ADDENDUM ADDENDUM ADDENDUM ADDENDUM ADDENDUM ADDENDUM ADDENDUM ADDENDUM ADDENDUM ADDENDUM 02/12/2020 10:23 ADDENDUM 02/12/2020 10:23 ADDENDUM 02/12/2020 10:23 ADDENDUM 02/12/2020 10:23 ADDENDUM 02/12/2020 10:23 ANTIBODY / CLONE RESULT MLH-1 (M1) positive MSH2 (25D12) positive MSH6 (44) positive PMS2 (ZGR1502) positive Her-2neu (CB11) negative The above immunohistochemical/dualISH markers are ordered by Dr. Ledbetter and reviewed by the pathologist. Left lung nodule, CT-guided biopsy: Result of Microsatellite Instability Study: Negative (no loss of mismatch protein; no microsatellite instability detected). AM:hadley 02/12/20
--- NOTE | 2020-01-31 07:45 | CT_ITS ---
PROCEDURE: CT GUIDED CORE NEEDLE BIOPSY OF A left lower lobe LUNG LESION INDICATION: Female, 64 years old. LEFT LUNG NODULE/BIOPSY PHYSICIAN: Dr. North Wyman CONSENT: Written informed consent was obtained having explained the risks, benefits and alternatives in detail with the patient who accepted the risks and agreed to proceed. Laboratory review and clinical assessment was performed. CONSCIOUS SEDATION PROTOCOL: The Drugs used were: 2 mg Versed, IV., and 50 mcg Fentanyl, IV. The sedation time was: 25 minutes. Conscious sedation was started 9:05 AM and December 16, 1940 The conscious sedation protocol was independently monitored. RADIATION DOSAGE (If Supplied By Facility): C. TDI vol = ( 17 ) mGy, DLP = ( 680.31 ) mGycm Individualized dose optimization techniques were used for this CT. TECHNIQUE: The patient was placed in the prone position. A noncontrast CT was performed to localize the lesion in the left lower lobe . The skin surface was prepped and draped in a sterile fashion. 1% lidocaine was used for local anesthesia. Using CT guidance, a 20-gauge coaxial biopsy device was advanced to the periphery of the lesion. A total of 3 core specimens were obtained. The specimens were placed in a formalin solution. A post procedure CT demonstrated no adverse sequelae or pneumothorax. The patient tolerated the procedure well without adverse event. A negative biopsy does not exclude malignancy. Further imaging or clinical followup based on patient condition and degree of clinical suspicion for malignancy. Suggest rebiopsy, if biopsy results do not match with clinical scenario. CT/Biopsy/Inj or Needle Placement IMPRESSION: 1. CT directed core needle biopsy of the left lower lobe lung nodule using CT image guidance with image documentation as described. Pathology results are pending. 2. Conscious Sedation protocol utilized with independent monitoring. Electronically Signed: Cesar Kat, at 10:03 EDT , Service support ,
[2020-01-31 07:57] LABS: Absolute Lymphocyte Count 0.72 X10^3/uL (0.83-4.51); Absolute Neutrophil Count 3.5 X10^3/uL (2.0-7.7); Basophil# 0.04 X10^3/uL; Basophil% 0.8 % (0-1); Eosinophil# 0.16 X10^3/uL; Eosinophils% 3.2 % (0-5); Hematocrit 38.5 % (37-47); Lymphocyte # 0.72 X10^3/ul (4.0); Lymphocyte % 14.3 % (19-41); Mean Corp Hgb Conc 31.2 g/dL (32-36); Mean Corpuscular Hgb 25.9 pg (27.0-32.0); Mean Corpuscular Volume 83.2 fL (81-99); Mean Platelet Vol. 8.9 fl (6.2-12.0); Monocyte# 0.64 X10^3/uL; Monocyte% 12.7 % (0-10); NRBC Flagged by Analyzer 0 % (0-5); Neutrophil # 3.45 X10^3/uL (2.7-7.7); Neutrophil % 68.6 % (47-70); Platelet Count 316 K/mm3 (150-450); RBC Distribution Width SD 44.5 fl (35.1-43.9); Red Blood Count 4.63 M/mm3 (4.2-5.4)
[2020-01-31 08:17] LABS: International Normalized Ratio 1.2; Prothrombin Time (Protime)PT. 14.7 SECONDS (11.7-14.9)
[2020-01-31 08:18] LABS: Partial Thromboplast Time 30.7 Seconds (24.1-36.2)
[2020-01-31] MEDS: Midazolam 2 MG/2 ML Syringe IV (09:04)
[2020-01-31] MEDS: fentaNYL 100 MCG/2 ML Ampul IV (09:05)
--- NOTE | 2020-01-31 09:44 | RAD_ITS ---
STUDY: X-RAY CHEST REASON FOR EXAM: Female, 64 years old. POST LEFT LUNG BX TECHNIQUE: AP inspiration and expiration following left lung biopsy. COMPARISON: Comparison is made with prior examination of August 31, 2018. FINDINGS: There is no evidence of pneumothorax on the immediate post left lung biopsy radiograph. Multiple bilateral pulmonary nodules. RAD/Chest Insp/Exp 2 View IMPRESSION: Multiple bilateral pulmonary nodules. No evidence of pneumothorax following the left lung biopsy. Electronically Signed: Cesar Kat, at 10:04 EDT , Service support ,
--- NOTE | 2020-01-31 11:40 | RAD_ITS ---
STUDY: X-RAY CHEST REASON FOR EXAM: Female, 64 years old. 2 HOUR POST LUNG BIOPSY IN AND EXP AP CHEST. TECHNIQUE: AP inspiration and expiration views. COMPARISON: Comparison is made with prior examination done earlier today. FINDINGS: There is no evidence of pneumothorax on the delayed post left lung biopsy radiographs. Multiple pulmonary nodules. RAD/Chest Insp/Exp 2 View IMPRESSION: No evidence of pneumothorax on the delayed post left lung biopsy radiographs. Electronically Signed: Cesar Kat, at 12:54 EDT , Service support ,
== END ==
PROVIDERS: PCP Family Medicine; Referring Provider Internal Medicine Medical Oncology; Visit Provider Internal Medicine Medical Oncology
DX: C54.1 Malignant neoplasm of endometrium (principal); C78.02 Secondary malignant neoplasm of left lung; R91.1 Solitary pulmonary nodule; Z85.41 Personal history of malignant neoplasm of cervix uteri; Z87.891 Personal history of nicotine dependence
CPT/HCPCS: 32405; 36415; 71046; 77012; 85025; 85610; 85730; 88172; 88305; 88313; 88341; 88342; 99156; 99157; J7040; A4216

== ENCOUNTER → 2020-02-11 12:55 | Outpatient (CLI) | payer MEDICARE, SELFPAY ==
[2020-02-07 14:20] VITALS: BMI 34.3
[2020-02-11 10:29] VITALS: BMI 34.9
--- NOTE | 2020-02-11 12:56 | ECHODONC_ITS ---
Reason For Study: PRE CHEMO Procedure This was a 2D Doppler, Color Flow transthoracic echocardiogram. Myocardial strain analysis was performed in this exam to aid in the assessment of cardiac function. Technically difficult due to body habitus. Exam performed in department. Left Ventricle Normal LV size. Apical false tendon noted. Left ventricular systolic function is normal. The estimated ejection fraction is 65 %. No regional wall motion abnormalities noted. Atria Normal left atrium. Mitral Valve Normal mitral valve. Tricuspid Valve Normal tricuspid valve. Aortic Valve Normal aortic valve. Trisinus/trileaflet aortic valve. Pulmonic Valve Normal pulmonic valve. Great Vessels Normal aortic root. The pulmonary artery is normal size. Normal inferior vena cava. Pericardium/Pleural No pericardial effusion. MMode/2D Measurements & Calculations LVIDd: 4.1 cm IVSd: 1.1 cm Ao root diam: 2.6 cm LVIDs: 2.7 cm LVPWd: 1.1 cm RVDd: 3.2 cm FS: 35.1 % LAV(MOD-bp): 37.8 ml EDV(MOD-sp4): 64.1 ml EDV(MOD-sp2): 49.0 ml LAV(MOD-bp) Indexed: 17.5 ml/m2 ESV(MOD-sp4): 24.2 ml EF(MOD-sp2): 65.8 % LAV(MOD-sp2): 42.6 ml EF(MOD-sp4): 62.3 % LAV(MOD-sp4): 29.4 ml SV(MOD-sp4): 39.9 ml SV(MOD-sp2): 32.2 ml LA A4 area: 12.8 cm2 LA dimension(2D): 3.7 cm RA A4 area: 9.0 cm2 Time Measurements MV dec time: 0.26 sec Doppler Measurements & Calculations MV E max damien: 41.2 cm/sec Lat Peak E' Damien: 6.4 cm/sec Med Peak E' Damien: 3.9 cm/sec MV A max damien: 78.6 cm/sec E/E' lat: 6.5 E/E' med: 10.6 MV E/A: 0.52 Ao V2 max: 112.0 cm/sec PA V2 max: 88.0 cm/sec PI end-d damien: 105.5 cm/sec Ao max P.0 mmHg TR max damien: 195.0 cm/sec TR max P.2 mmHg Interpretation Summary Normal LV size. Left ventricular systolic function is normal. The estimated ejection fraction is 65 %. Apical false tendon noted. The global longitudinal strain = -17.9 % (normal). Ordering Physician: Reilly Ledbetter Referring Physician: NERI RIVAS Performed By: Margot Franks RDCS, RVT
== END ==
PROVIDERS: PCP Family Medicine; Referring Provider Internal Medicine Medical Oncology; Visit Provider Internal Medicine Medical Oncology
DX: Z01.810 Encounter for preprocedural cardiovascular examination (principal); C78.00 Secondary malignant neoplasm of unspecified lung; Z85.42 Personal history of malignant neoplasm of other parts of uterus
CPT/HCPCS: 93306; 93356

== ENCOUNTER 2020-02-12 07:48 | Day surgery (SDC) | payer MEDICARE, SELFPAY ==
[2020-02-11 10:29] VITALS: BMI 34.9
[2020-02-12] VITALS (7 sets, daily range): BP systolic 156–170; BP diastolic 73–81; PULSE 73–95; RESP 15–16; TEMP 36.1–36.5; O2SAT 95–97; BMI 34.7
[2020-02-12] MEDS: Lactated Ringers 1,000 ML 100 ML IV (08:25)
[2020-02-12] MEDS: Cefazolin 2 GM in 0.9% Normal Saline 100 ML IV (09:28)
[2020-02-12] MEDS: Bupiv/Epi 0.5% Mpf 30 ML Vial (09:38)
--- NOTE | 2020-02-12 10:07 | RAD_ITS ---
STUDY: X-RAY CHEST REASON FOR EXAM: Female, 64 years old. Post port placement TECHNIQUE: Single AP portable view of the chest. COMPARISON: Comparison is made with prior examination dated January 31, 2020. FINDINGS: A right-sided portacatheter has been placed. The tip is at the junction of the superior vena cava and right atrium. Multiple pulmonary nodules. There is no demonstrated pleural abnormality. Normal size heart. Normal mediastinum and elba. Normal visualized pulmonary arteries. There is atherosclerotic tortuosity of the aortic arch and descending thoracic aorta. Normal visualized thoracic spine. Normal visualized ribs, clavicles, and shoulders. There is no demonstrated abnormality of the visualized soft tissue structures of the upper abdomen. RAD/CXR for Line Placement IMPRESSION: Multiple pulmonary nodules. A right-sided port catheter as been placed with the tip at the junction of the superior vena cava and right atrium. Electronically Signed: Cesar Kat, at 10:32 EDT , Service support ,
--- NOTE | 2020-02-12 10:08 | PCM.HP.BLA ---
Problem List (1) Encounter for adjustment and management of vascular access device Status: Acute History and Physical Date of Admission: 02/12/20 Intake Intake Visit Reasons: PORT PLACEMENT Chief Complaint: F/u for evaluation of lung nodules. Allergies No Known Allergies Allergy (Verified 02/11/20 10:21) [facility] Medical History (Updated 02/11/20 @ 10:[address] Ilya Camp MD) Endometrial cancer (Acute) Surgical History H/O total hysterectomy (Acute) Family History Mother Breast cancer Social History (Updated 02/11/20 @ 10:[address] Ilya Camp MD) Smoking Status: Never smoker HPI HPI Chief Complaint: F/u for evaluation of lung nodules. Details: Patient was informed that this visit will be billed to patient. This visit was conducted during - pandemic. JAMES HIGGINS, is a 64 F who presents to the office today for port consultation. The patient had hysterectomy for endometrial carcinoma. The patient is now found to have metastasis to the lungs. She needs a port for chemotherapy. ROS Const Constitutional: No anorexia, excessive sweating or abnormal sleep pattern Resp Respiratory: No cough or chest congestion Cardio Cardiology: No chest pain at rest or excessive sweating Gastro GI: No abdominal pain, change in stool character or diarrhea Genitourinary-Female: No difficulty urinating Musc Musculoskeletal: No abnormal walking Neuro Neurology: No abnormal walking or abnormal speech Psych Psychiatric: No abnormal sleep pattern Endo Endocrine: No excessive sweating Assessment & Plan Problems 1. Endometrial adenocarcinoma C54.1 2. Encounter for insertion of venous access port Z45.2 Plan The patient has metastatic endometrial carcinoma and requires port for treatment. I discussed right chest port placement with her in detail. I discussed the risks including but not limited to bleeding, infection, pneumothorax, port infection, DVT. The patient's questions were all answered and she will have her port placed tomorrow. Instructions were given. She was instructed to stay n.p.o. after midnight tonight. I did discuss her penicillin allergy with her. She tells people that she has a penicillin allergy but she is never had penicillins. She tells people that is due to her mother's penicillin allergy. I will give her Ancef prior to surgery tomorrow. Ilya Camp MD Pager: [facility] [address] [place] [address] [facility] [address] [place], [place] [id number] Office: Exam: Patient is ANO x3 with regular heartbeat and regular rhythm. Clear to auscultation bilaterally. Abdomen soft nontender nondistended. I have re-examined the patient. There are no clinical changes since date of exam. Ilya Camp MD Pager: [facility] [address] [place] [address] [facility] [address] [place] [phone] Office:
--- NOTE | 2020-02-12 10:09 | OP.PCM_ITS ---
Problem List (1) Encounter for adjustment and management of vascular access device Status: Acute Report of Operation Date of Procedure: 02/12/20 Pre-Operative Diagnosis: Metastatic endometrial carcinoma and need for vascular access Post-Operative Diagnosis: Same Surgery/Procedure Performed:: Ultrasound and fluoroscopy guided right chest port placement utilizing right IJ Description of Procedure: After obtaining informed consent patient was brought back to the operating room MAC anesthesia was induced and the right chest and neck were prepped in normal sterile fashion. Ultrasound was used to evaluate both IJs and the right IJ was selected. Next, using a needle, the right IJ was accessed and a guidewire was passed on into the superior vena cava under fluoroscopy guidance. A small incision was made over the puncture site and the dilator introducer was placed over the guidewire. Next this was capped and the pocket was made for the port. 1% lidocaine with epinephrine was injected in the proposed port site. An incision was made with scalpel. Electrocautery was used to make a pocket under the skin and subcutaneous tissue. Hemostasis was obtained. Next, the catheter was tunneled up to the neck incision site and placed through the introducer. The peel-away introducer was removed and the position of the catheter was confirmed on fluoroscopy. Next, the catheter was trimmed and attached to the port with the locking device. Interrupted 2-0 Vicryl sutures were used to anchor the port to the chest wall and then the port was placed inside the pocket. The pocket was then flushed with saline and the port irrigated with saline. There was good blood return and the port flushed easily. Next, heparin was injected into the port. The skin was closed with subcutaneous interrupted 3-0 Vicryl sutures. A single 3-0 Vicryl sutures placed under the skin at the neck incision site. Steri-Strips were placed as well as op sites. Patient tolerated procedure well, was taken to PACU in stable condition. Chest x-ray will be obtained. Grafts/Implants Used: 8 [employer]
--- NOTE | 2020-02-12 10:10 | DCINST_ITS ---
Discharge Diet: No Restrictions - Pain medication may cause nausea. You should typically eat light foods as you take your pain medication. Discharge Activity: Return to Normal Activity, May Shower - with your bandage in place in 1-2 days after surgery. Call your doctor if your incision/area has: Continuous Slow Oozing, Sudden Increased Bleeding, Increased Pain/ Swelling, Increased Redness Call your doctor if you observe: Fever of 101 or Higher Remove Dressing in (days):: 3 - Remove bandage in 3 days, remove steri strips in 7-10 days Cleanse incision/area with: Soap & Water Allergies/Adverse Reactions: Allergies No Known Allergies Allergy (Verified 02/12/20 08:03) Medications to take at Discharge Loperamide HCl [Imodium A-D] 2 mg PO TID PRN PRN 01/24/20 Primary Care Physician: Brook Woo MD [Primary Care Provider] - Test Results: Test results from this visit will be discussed in further detail at your follow- up appointment, if applicable. Please Follow Up With: Ilya Camp MD When: Our office will call to follow up. If any issues please call [phone]
== END 2020-02-12 11:20 | disposition home or self-care (01) ==
LOC: SDC 07:50 → AC 07:50
PROVIDERS: PCP Family Medicine; Referring Provider Surgery; Visit Provider Surgery
PROC: (CPT 36561; principal; 2020-02-12 09:15)
DX: C54.1 Malignant neoplasm of endometrium (principal); C78.00 Secondary malignant neoplasm of unspecified lung; Z45.2 Encounter for adjustment and management of vascular access device
CPT/HCPCS: 00532; 36561; 71045; 77001; J7120; C1788

== ENCOUNTER 2020-02-15 17:30 | Emergency (ER) | payer MEDICARE, SELFPAY ==
[2020-02-12 08:10] VITALS: BMI 34.7
[2020-02-15] VITALS (10 sets, daily range): BP systolic 176–203; BP diastolic 94–119; PULSE 77–104; RESP 16–22; TEMP 36.7; O2SAT 96–99; BMI 36.8
--- NOTE | 2020-02-15 17:44 | CT_ITS ---
STUDY: CT BRAIN WITHOUT CONTRAST REASON FOR EXAM: Female, 64 years old. Weakness. Metastatic endometrial cancer. RADIATION DOSAGE (If Supplied By Facility): CTDIvol = ( 44.99 ) mGy, DLP = ( 829.85 ) mGycm TECHNIQUE: Transaxial CT imaging of the brain was performed without administration of intravenous contrast material. Individualized dose optimization techniques were used for this CT. COMPARISON: No relevant priors. FINDINGS: Normal soft tissue structures. There is hyperostosis frontalis internus. Vasogenic edema is seen throughout the right parietal lobe related to a slightly hyperdense bilobed 2 cm mass of the right parietal lobe seen on sagittal image 26. There is mild mass effect. No midline shift. Mild effacement of sulci. Compression of the posterior aspect of the right lateral ventricle. No other abnormalities are seen of the brain. Otherwise normal size ventricles and extra-axial spaces for the patient''s age. Otherwise normal white matter tracts of the cerebral hemispheres. Normal basal ganglia and thalami. Normal brainstem. Normal cerebellum. There is no intracranial hemorrhage. There are no findings of an acute ischemic infarction. Normal visualized paranasal sinuses. CT/Brain/Head without Contrast IMPRESSION: Moderate vasogenic edema throughout the right parietal lobe related to a 2 cm probable metastasis of the right parietal lobe. Recommend MRI with contrast. Electronically Signed: Kevin Clark MD at 18:41 EDT , Service support ,
--- NOTE | 2020-02-15 17:44 | EKG12_ITS ---
Test Reason : CONFUSION Blood Pressure : / mmHG Vent. Rate : 106 BPM Atrial Rate : 205 BPM P-R Int : 000 ms QRS Dur : 084 ms QT Int : 332 ms P-R-T Axes : 055 -14 053 degrees QTc Int : 441 ms Sinus tachycardia with aberrantly conducted complexes Abnormal ECG Confirmed by LINDSAY RILEY, VERONICA ([id number]), newspaper or periodical editor DARY MICHELLE ([id number]) on 02/18/2020 8:40:46 AM Referred By: GURDEEP Confirmed By:VERONICA MONTOYA MD
--- NOTE | 2020-02-15 17:50 | ED.RN ---
PT WOULD NOT FOLLOW MY FINGER WITH HER EYES OR REPEAT WORDS THAT I HAD ASKED.
--- NOTE | 2020-02-15 18:15 | ED.DCSUM_ITS ---
History of Present Illness Chief Complaint: Confusion Informant: Family Limited by: - - Altered mental status Narrative: Patient is a 64-year-old female with history of metastatic endometrial cancer currently about to start chemotherapy and had a port placed this week, 3 days ago. She was found by her daughter who went to check on her because she was not answering her phone, naked and on the floor. Patient was in the prone position. She seemed very confused and would only give one-word answers that did not really make sense. The daughter states patient had soiled herself. She not sure how long she was on the ground. Patient was last seen 2 days ago for [facility]. At that time patient was complaining of some fatigue and just seemed tired. Patient had asked for pantiliners because she been having some incontinence. This was new. Patient is a chronic cough associated with her lung cancer but this is unchanged. Patient does live home alone. She is otherwise quite independent and healthy. History is obtained by her daughter Jaz who I spoke to on the phone. Past Medical History - Allergies and Home Meds Allergies/Adverse Reactions: Allergies No Known Allergies Allergy (Verified 02/15/20 18:27) Primary Care Physician: Brook Woo MD [Primary Care Provider] - Past Medical History: - - Endometrial cancer with metastasis to the lungs Surgical History: hysterectomy, - - BTL. kidney stone. Lives: Alone Smoking Status: Current every day smoker Review of Systems All systems negative except as indicated - Patient confused, unable to contribute to history or ROS Physical Exam Vital Signs/Narrative: Vital Signs Temp Pulse Resp BP Pulse Ox 02/15/20 17:31 98.0 F 104 H 18 177/94 H 96 Inital Vital Signs reviewed: Yes General: Well nourished, Well developed, Obese Head: Normocephalic, Atraumatic, - - No Signs of basilar skull fracture Eyes: Perrl, - - Gaze fixed to right ENT: Moist mucous membranes, TM's clear, - - No hemotympanum, no septal hematoma Neck: Supple, Nontender, No JVD Cardiovascular: Regular rate, Regular rhythm Respiratory: No distress, CTA bilaterally, Chest nontender, - - Bruising over right anterior chest wall from recent port placement Abdomen: Soft, Nontender, Nondistended, Normal bowel sounds Extremities: Nontender, No edema Skin: Normal color, No rash. Negative for: Trauma Neurological: Alert, Inattentive, - - Patient does not follow commands so neurologic exam/NIH is quite difficult. Does appear to have a left-sided neglect. Does not raise either arms or legs, seems to jerk back when you try to move extremities. Only answers in one-word questions but speech is clear. Answers do not necessarily coincide with questions. Diagnostic/Tx/Re-eval Chest X-Ray - ED: 1 View, Unchanged Clinical Impression(s) from Imaging Studies Brain CT 02/15/20 17:44 IMPRESSION: Moderate vasogenic edema throughout the right parietal lobe related to a 2 cm probable metastasis of the right parietal lobe. Recommend MRI with contrast. Electronically Signed: Kevin Clark MD at 18:41 EDT , Service support , Chest X-Ray 02/15/20 18:25 IMPRESSION: Decreased ventilation since previous exam but otherwise no change. Widespread metastatic disease. Electronically Signed: Kevin Clark MD at 18:43 EDT , Service support , Laboratory Data 02/15/20 02/15/20 02/15/20 18:05 18:05 18:05 WBC 13.0 H RBC 5.02 Hgb 12.9 Hct 41.3 MCV 82.3 MCH 25.7 L MCHC 31.2 L RDW Std Deviation 43.0 RDW Coeff of Brigido 14.6 Plt Count 291 MPV 9.8 Immature Gran % (Auto) 0.700 Neut % (Auto) 89.3 H Lymph % (Auto) 2.8 L Isabela % (Auto) 7.0 Eos % (Auto) 0.0 Baso % (Auto) 0.2 Absolute Neuts (auto) 11.6 H Absolute Lymphs (auto) 0.37 L Nucleated RBC % 0 Differential Comment SCANNED Platelet Estimate ADEQUATE Anisocytosis 1+ Tear Drop Cells RARE Ovalocytes RARE PT 14.4 INR 1.2 APTT 25.5 Sodium 138 Potassium 3.9 Chloride 104 Carbon Dioxide 26.0 Anion Gap 8 BUN 29 H Creatinine 1.35 H Estim Creat Clear Calc 37.38 Est GFR (MDRD) Af Amer 51 L Est GFR (MDRD) Non-Af 42 L BUN/Creatinine Ratio 21.5 H Glucose 138 H Lactic Acid Calcium 17.7 H* Ammonia Total Creatine Kinase Troponin I < 0.015 Urine Color Urine Clarity Urine pH Ur Specific [place] Urine Protein Urine Glucose (UA) Urine Ketones Urine Occult Blood Urine Nitrite Urine Bilirubin Urine Urobilinogen Ur Leukocyte Esterase Urine RBC Urine WBC Ur Squamous Epith Cells Amorphous Sediment Urine Bacteria Urine Mucus 02/15/20 02/15/20 02/15/20 18:05 18:05 18:05 WBC RBC Hgb Hct MCV MCH MCHC RDW Std Deviation RDW Coeff of Brigido Plt Count MPV Immature Gran % (Auto) Neut % (Auto) Lymph % (Auto) Isabela % (Auto) Eos % (Auto) Baso % (Auto) Absolute Neuts (auto) Absolute Lymphs (auto) Nucleated RBC % Differential Comment Platelet Estimate Anisocytosis Tear Drop Cells Ovalocytes PT INR APTT Sodium Potassium Chloride Carbon Dioxide Anion Gap BUN Creatinine Estim Creat Clear Calc Est GFR (MDRD) Af Amer Est GFR (MDRD) Non-Af BUN/Creatinine Ratio Glucose Lactic Acid 1.8 Calcium Ammonia < 10.0 L Total Creatine Kinase 318 H Troponin I Urine Color Urine Clarity Urine pH Ur Specific [place] Urine Protein Urine Glucose (UA) Urine Ketones Urine Occult Blood Urine Nitrite Urine Bilirubin Urine Urobilinogen Ur Leukocyte Esterase Urine RBC Urine WBC Ur Squamous Epith Cells Amorphous Sediment Urine Bacteria Urine Mucus 02/15/20 18:50 WBC RBC Hgb Hct MCV MCH MCHC RDW Std Deviation RDW Coeff of Brigido Plt Count MPV Immature Gran % (Auto) Neut % (Auto) Lymph % (Auto) Isabela % (Auto) Eos % (Auto) Baso % (Auto) Absolute Neuts (auto) Absolute Lymphs (auto) Nucleated RBC % Differential Comment Platelet Estimate Anisocytosis Tear Drop Cells Ovalocytes PT INR APTT Sodium Potassium Chloride Carbon Dioxide Anion Gap BUN Creatinine Estim Creat Clear Calc Est GFR (MDRD) Af Amer Est GFR (MDRD) Non-Af BUN/Creatinine Ratio Glucose Lactic Acid Calcium Ammonia Total Creatine Kinase Troponin I Urine Color Yellow Urine Clarity Sl. Cloudy Urine pH 5.0 Ur Specific [place] 1.030 Urine Protein 30 H Urine Glucose (UA) Normal Urine Ketones 5 H Urine Occult Blood 50 H Urine Nitrite Negative Urine Bilirubin Negative Urine Urobilinogen Normal Ur Leukocyte Esterase Negative Urine RBC 0-5 SEEN Urine WBC 0-5 SEEN Ur Squamous Epith Cells 0 SEEN Amorphous Sediment 1+ Urine Bacteria 0 SEEN Urine Mucus 0 SEEN - Rhythm Strip Rhythm Strip: Sinus Tach Rate: 106 Ectopy: None - EKG Initial EKG Interpretation: Sinus Tachycardia, - - Sinus tachycardia at a rate of 106 Normal intervals Normal axis Normal ST segments - Medical Decision Making Patient is evaluated for altered mental status. She was found on the side of her bed in the prone position and minimally responsive by her daughter. Patient was last seen 2 days ago. In the ER patient appears encephalopathic but does seem to have a right-sided gaze deviation. She is hemodynamically stable but is hypertensive. CT of the brain obtained which shows a 2 cm mass of the right parietal lobe with associated vasogenic edema. Patient CBC is relatively normal. Her BMP is remarkable for an elevated calcium of 17.7. Patient has a mildly elevated CPK of 318. Her creatinine is at her baseline 1.35. Patient's urinalysis is not consistent with infection. He does have 50 occult blood which could be an indicator of early rhabdomyolysis as we do not know how long patient was seen on the ground. Patient is given a liter of fluids in the emergency room. She is given 10 of IV labetalol. I do think patient will require admission for her mental status change, hypercalcemia and what seems to be a new diagnosis of a brain met. Discussed with hospitalist who feels that she should be somewhere who has neurosurgery capabilities. I do think this is reasonable. Daughter is comfortable with transferring to [facility]. I spoke to the transfer line and patient is accepted by Dr. Guy. Patient does not have any significant change in the emergency room. Patient's presentation is practically a mixture of brain metastasis, edema as well as hypercalcemia. 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 ED Disposition - Plan for ED Patient: Disposition: [facility] Diagnosis: Right parietal lobe mass, Hypercalcemia, Altered mental status Referrals: Brook Woo MD [Primary Care Provider] -
[2020-02-15 18:20] LABS: Absolute Lymphocyte Count 0.37 X10^3/uL (0.83-4.51); Absolute Neutrophil Count 11.6 X10^3/uL (2.0-7.7); Basophil# 0.02 X10^3/uL; Basophil% 0.2 % (0-1); Hematocrit 41.3 % (37-47); Hemoglobin 12.9 g/dL (12.0-15.0); Lymphocyte # 0.37 X10^3/ul (4.0); Lymphocyte % 2.8 % (19-41); Mean Corp Hgb Conc 31.2 g/dL (32-36); Mean Corpuscular Hgb 25.7 pg (27.0-32.0); Mean Corpuscular Volume 82.3 fL (81-99); Mean Platelet Vol. 9.8 fl (6.2-12.0); Monocyte# 0.91 X10^3/uL; NRBC Flagged by Analyzer 0 % (0-5); Neutrophil # 11.64 X10^3/uL (2.7-7.7); Neutrophil % 89.3 % (47-70); POSITIVE DIFFERENTIAL YES; Platelet Count 291 K/mm3 (150-450); RBC Distribution Width CV 14.6 % (11.6-14.6); Red Blood Count 5.02 M/mm3 (4.2-5.4)
--- NOTE | 2020-02-15 18:21 | ED.RN ---
PT UNABLE TO PERFORM MOST TASK, WILL NOT ANSWER MOST QUESTIONS.
[2020-02-15 18:25] LABS: Differential Indicated SCAN CRITERIA MET
--- NOTE | 2020-02-15 18:25 | RAD_ITS ---
STUDY: X-RAY CHEST REASON FOR EXAM: Female, 64 years old. WEAKNESS, UNABLE TO CONTROL LEFT SIDE OF HER BODY. Metastatic endometrial cancer TECHNIQUE: Single AP portable view of the chest. COMPARISON: 02/12/2020. FINDINGS: Right Mediport catheter terminates near the cavoatrial junction. Moderate lung volumes. Mild elevation of the right hemidiaphragm. Widespread nodules throughout both lungs consistent with metastatic disease similar to prior exam. No definite infiltrates. No effusions. Normal size heart. Normal mediastinum and elba. Normal visualized pulmonary arteries. Normal visualized aortic arch and descending thoracic aorta. Normal visualized thoracic spine. Normal visualized ribs, clavicles, and shoulders. There is no demonstrated abnormality of the visualized soft tissue structures of the upper abdomen. RAD/Chest 1 View IMPRESSION: Decreased ventilation since previous exam but otherwise no change. Widespread metastatic disease. Electronically Signed: Kevin Clark MD at 18:43 EDT , Service support ,
[2020-02-15 18:27] LABS: International Normalized Ratio 1.2; Prothrombin Time (Protime)PT. 14.4 SECONDS (11.7-14.9)
[2020-02-15 18:28] LABS: Partial Thromboplast Time 25.5 Seconds (24.1-36.2)
[2020-02-15 18:41] LABS: CPK Total, Creatine Kinase 318 U/L (26-192); Lactic Acid 1.8 mmol/L (0.4-1.9)
--- NOTE | 2020-02-15 18:44 | ED.RN ---
PER DR. SALINAS, MAY CANCEL NIH Q3O MINS.
[2020-02-15 18:56] LABS: Bacteria 0 SEEN /hpf (None Seen); Mucous, Urine 0 SEEN /hpf (<or=2+); Squamous Epithelial Cells - UA 0 SEEN /hpf (5-10)
[2020-02-15 19:02] LABS: Color, Urine Yellow (Yellow); Glucose, Dipstick Normal (Normal); Ketone-Dipstick 5 mg/dl (Negative); Leukocyte Esterase-Dipstick Negative /ul (Negative); Nitrite-Dipstick Negative (Negative); Occult Blood-Urine 50 /ul (Negative); Protein-Dipstick 30 mg/dl (Negative); Urine Bilirubin Dipstick Negative (Negative); Urine Clarity Sl. Cloudy (Clear); Urine Urobilinogen Normal (Normal)
[2020-02-15 19:03] LABS: Ammonia < 10.0 umol/L (11-32)
[2020-02-15 19:06] LABS: Anion Gap 8 (5-15); BUN 29 mg/dL (7-18); BUN/Creat Ratio 21.5 RATIO (10-20); Calcium,Total 17.7 mg/dL (8.5-10.1); Chloride 104 mmol/L (98-107); Creatinine, Serum 1.35 mg/dL (0.55-1.02); EST Glomerular Filtration Rate 42 mL/min (>60); Est Glom Filt Rate - Afr Amer 51 mL/min (>60); Estimated Creatinine Clearance 37.38 ml/min; Glucose 138 mg/dL (74-106); Potassium 3.9 mmol/L (3.5-5.1); Sodium Level 138 mmol/L (136-145)
[2020-02-15 19:11] LABS: Amorphous Sediment 1+; Red Blood Cells-Urine 0-5 SEEN /hpf (0-5); White Blood Cells 0-5 SEEN /hpf (0-5)
[2020-02-15] MEDS: 0.9% Normal Saline 1,000 ML 999 ML IV (19:15)
[2020-02-15 19:22] LABS: Anisocytosis 1+; Differential Comment SCANNED; Ovalocyte RARE; Platelet Estimate ADEQUATE (ADEQ); Tear Drop Cell RARE
--- NOTE | 2020-02-15 19:34 | HP.PCM_ITS ---
History of Present Illness Date of Admission: 02/15/20 Chief Complaint: Found on floor, confused, L hemiplegia The patient is a 64 year old F [] Past Medical History Past Medical History (Chronic Problems): Chronic Problems (Last Reviewed 02/11/20 @ 11:20 by Angie Hammond) Kidney stones (Chronic) History of malignant neoplasm of endometrium (Chronic) Medical History: Medical History (Last Reviewed 02/11/20 @ 11:20 by Angie Hammond) Endometrial cancer C54.1 Allergies No Known Allergies Allergy (Verified 02/15/20 18:27) Home Medications: Ambulatory Orders Medication Instructions Recorded Ondansetron [Zofran] 8 mg PO Q8H PRN PRN 02/15/20 proCHLORPERazine tablet [Compazine 10 mg PO Q6H PRN PRN 02/15/20 tablet] Surgical History: Surgical History (Last Reviewed 02/11/20 @ 11:20 by Angie Hammond) H/O total hysterectomy Z90.710 Surgical History: hysterectomy, - - BTL. kidney stone. Lives: Alone Smoking Status: Current every day smoker - Physical Exam Vitals/I&O's: Vital Signs Temp Pulse Resp BP Pulse Ox 98.0 F 96 20 H 196/110 H 98 02/15/20 17:31 02/15/20 18:14 02/15/20 18:14 02/15/20 18:14 02/15/20 18:17 Oxygen Flow Rate (L/min) 2 Oxygen Delivery Method Nasal Cannula Weight: 221 lb 1.978 oz Body Mass Index (BMI) 36.8 Finger Stick Blood Glucose 117 Laboratory Results 02/15/20 18:05: WBC 13.0 H, RBC 5.02, Hgb 12.9, Hct 41.3, MCV 82.3, MCH 25.7 L, MCHC 31.2 L, RDW Std Deviation 43.0, RDW Coeff of Brigido 14.6, Plt Count 291, MPV 9.8, Immature Gran % (Auto) 0.700, Neut % (Auto) 89.3 H, Lymph % (Auto) 2.8 L, Terry % (Auto) 7.0, Eos % (Auto) 0.0, Baso % (Auto) 0.2, Absolute Neuts (auto) 11.6 H, Absolute Lymphs (auto) 0.37 L, Nucleated RBC % 0, Differential Comment SCANNED, Platelet Estimate ADEQUATE, Anisocytosis 1+, Tear Drop Cells RARE, Ov alocytes RARE 02/15/20 18:05: PT 14.4, INR 1.2, APTT 25.5 02/15/20 18:05: Sodium 138, Potassium 3.9, Chloride 104, Carbon Dioxide 26.0, Anion Gap 8, BUN 29 H, Creatinine 1.35 H, Estim Creat Clear Calc 37.38, Est GFR (MDRD) Af Amer 51 L, Est GFR (MDRD) Non-Af 42 L, BUN/Creatinine Ratio 21.5 H, Glucose 138 H, Calcium 17.7 H*, Troponin I < 0.015 02/15/20 18:05: Total Creatine Kinase 318 H 02/15/20 18:05: Ammonia < 10.0 L 02/15/20 18:05: Lactic Acid 1.8 02/15/20 18:50: Urine Color Yellow, Urine Clarity Sl. Cloudy, Urine pH 5.0, Ur Specific [place] 1.030, Urine Protein 30 H, Urine Glucose (UA) Normal, Urine Ketones 5 H, Urine Occult Blood 50 H, Urine Nitrite Negative, Urine Bilirubin Negative, Urine Urobilinogen Normal, Ur Leukocyte Esterase Negative, Urine RBC 0-5 SEEN, Urine WBC 0-5 SEEN, Ur Squamous Epith Cells 0 SEEN, Amorphous Sediment 1+, Urine Bacteria 0 SEEN, Urine Mucus 0 SEEN Assessment/Plan All Active Problems (Last Reviewed 02/11/20 @ 11:20 by Angie Hammond) Encounter for education (Acute) Encounter for adjustment and management of vascular access device (Acute) Endometrial adenocarcinoma (Resolved) Chemotherapy management, encounter for (Acute) Chemotherapy-induced nausea (Acute) Multiple lung nodules on CT (Acute)
--- NOTE | 2020-02-15 20:58 | ED.RN ---
THIS NURSE CALLED REPORT TO STEFANO AT [facility] AND GAVE STEFANO PT'S DAUGHTERS PHONE NUMBER, SO HE CAN UPDATE DAUGHTER ON PT'S CONDITION. THIS NURSE CALLED REBA DIXON, PT'S DAUGHTER, INFORMED HER THAT PT WILL BE GOING TO [facility] ROOM [id number]. REBA DIXON VERBALIZED ADEQUATE UNDERSTANDING.
== END 2020-02-15 21:52 | disposition short-term general hospital (02) ==
PROVIDERS: Emergency Provider Emergency Medicine; PCP Family Medicine
DX: R41.82 Altered mental status, unspecified (principal); E83.52 Hypercalcemia; C54.1 Malignant neoplasm of endometrium; C78.01 Secondary malignant neoplasm of right lung; C79.31 Secondary malignant neoplasm of brain; F17.200 Nicotine dependence, unspecified, uncomplicated; R60.9 Edema, unspecified; E66.9 Obesity, unspecified
CPT/HCPCS: 70450; 71045; 80048; 81001; 82140; 82330; 82550; 83605; 84484; 85025; 85610; 85730; 93005; 96361; 96374; 99285; J7030; A4216